=== PATIENT | female | born 2000 | race African-American/Black ===

== ENCOUNTER 2021-12-13 08:06 | Emergency (ER) | payer OTHER, MEDICAID, SELFPAY ==
[2021-12-13 08:38] VITALS: BP 137/86; PULSE 80; RESP 17; TEMP 36.4; O2SAT 97; BMI 24.9
--- NOTE | 2021-12-13 08:43 | DI.RAD.S_ITS ---
PROCEDURE: XR CHEST 2V INDICATIONS: cough TECHNIQUE: 2 views of the chest were acquired. COMPARISON: None. FINDINGS: Surgical changes and devices: None. Lungs and pleura: Lungs are clear. No pleural effusions or pneumothorax. Mediastinum: Mediastinal contours are normal. Heart size is normal. Bones and chest wall: No suspicious bony abnormalities. Soft tissues appear unremarkable. IMPRESSION: Normal two view chest x-ray Approved by: Dev Henderson M.D. on 12/13/2021 at 8:44
[2021-12-13 09:01] LABS: COVID19 -Nasal RAPID Negative (Negative)
--- NOTE | 2021-12-13 09:08 | ED_ITS ---
HPI - URI/Sore Throat General Chief Complaint: Upper Respiratory Symptoms Stated Complaint: Coughing up blood, body aches Time Seen by Provider: 12/13/21 08:39 Source: patient Mode of arrival: Family Vehicle History of Present Illness HPI Narrative: Patient is a 21-year-old female no past medical history presenting today with fever cough for the last 3 days. She says she has been coughing up yellow-green sputum sometimes mixed with blood. She has had body aches fever and chills. She says previously she has gotten inhaler and steroids which she says has helped. She says at night she coughed so hard that she throws up. She says she can not sleep. COVID test is negative. She is taking testosterone but she has not taken it this week. Related Data Home Medications Medication Instructions Recorded Confirmed testosterone cypionate 200 mg/mL mg 12/13/21 intramuscular oil Previous Rx's Medication Instructions Recorded albuterol sulfate 90 mcg/actuation 2 puff INHALATION Q4-6H PRN #8.5 12/13/21 aerosol inhaler gram Allergies Allergy/AdvReac Type Severity Reaction Status Date / Time No Known Drug Allergies Allergy Verified 12/13/21 08:59 Review of Systems Review of Systems Narrative: GENERAL: See HPI HEENT: Denies sinus pain, ear pain, sore throat, difficulty swallowing, neck pain RESPIRATORY: See HPI CARDIOVASCULAR: Denies chest pain, palpitations, orthopnea, edema GASTROINTESTINAL: Denies nausea, vomiting, abdominal pain, diarrhea, constipation, melena. : Denies dysuria, frequency, incontinence, hematuria, urinary retention, flank pain. MUSCULOSKELETAL: Denies weakness, joint pain, or bony pain SKIN: No rash, no erythema, no pruritus NEUROLOGIC: Denies weakness, dizziness, headache, numbness, change in speech, confusion PSYCHIATRIC: No concerning psychosocial issues. 12 point review of systems is negative except for those stated above and HPI Patient History Social History Smoking Status: Unknown if ever smoked Smoking Status: Unknown if ever smoked alcohol intake frequency: 0-2 drinks per day Substance Use Type: does not use Exam Initial Vital Signs Initial Vital Signs: Vital Signs Temperature 97.5 F L 12/13/21 08:38 Pulse Rate 80 12/13/21 08:38 Respiratory Rate 17 12/13/21 08:38 Blood Pressure 137/86 12/13/21 08:38 Pulse Oximetry 97 12/13/21 08:38 GENERAL: Well-appearing, well-nourished and in no acute distress. HEENT: Head atraumatic,EOMI, pupils reactive, face symmetric, moist mucous membranes CARDIOVASCULAR: Regular rate and rhythm without murmurs, rubs or gallops. RESPIRATORY: Breath sounds equal bilaterally, no wheezes rales or rhonchi. EXTREMITIES: Normal range of motion, no clubbing or edema. Neurovascularly intact NEUROLOGICAL: Alert and oriented x4.Normal gait and speech. SKIN: Warm, dry, no laceration, no petechiae, no rashes or lesions. Course Orders Ordered: ED Orders 12/13/21 08:39 COVID19 -Nasal RAPID/Pre-Proc Stat 12/13/21 08:43 XR chest 2V Stat Vital Signs Vital signs: Vital Signs - 8 hr 12/13/21 08:38 Temperature 97.5 F L Pulse Rate 80 Respiratory Rate 17 Blood Pressure 137/86 Pulse Oximetry 97 [facility] - URI/Sore Throat Lab Data Labs: Lab Results 12/13/21 Range/Units 08:39 SARS-CoV-2 (PCR) Negative (Negative) Imaging Data Chest x-ray: Radiologist's Impression: Navya bowman MR#: [id number] : 2000 Acct:[id number] Age/Sex: 21 / F Date of Service: 12/13/21 Loc: ED Accession Number: [id number] ?? Procedure: XR chest 2V Ordering Provider: Eli Cuevas D.O. PROCEDURE:? XR CHEST 2V ? INDICATIONS:? cough ? TECHNIQUE:? 2 views of the chest were acquired.? ? COMPARISON:? None. ? FINDINGS:? ? Surgical changes and devices:? None.? ? Lungs and pleura:? Lungs are clear.? No pleural effusions or pneumothorax.? ? Mediastinum:? Mediastinal contours are normal.? Heart size is normal.? ? Bones and chest wall:? No suspicious bony abnormalities.? Soft tissues appear unremarkable.? ? IMPRESSION:? Normal two view chest x-ray ? ? ? Approved by: Dev Henderson M.D. on 12/13/2021 at 8:44? [facility] Narrative Medical decision making narrative: Patient's COVID test is negative x-rays clear. She has upper respiratory viral- like symptoms. At this time no need for antibiotics. She would like an al buterol inhaler to help with her coughing I think reasonable. She is not hypoxic or in respiratory distress at this time. She is on testosterone with symptoms of body aches fever and productive cough or more and infectious Discharge Plan Departure Patient Disposition: Home Clinical Impression: Upper respiratory infection Instructions: DI for Viral Upper Respiratory Infection -- Adult Activity Restrictions/Additional Instructions: *You have been diagnosed with upper respiratory infection *What to do: At this time no antibiotics. Recommend rest and hydration. *Continue to take medications as directed Albuterol inhaler 1-2 puffs every 4 hours if needed for cough--> SENT TO [facility] Tylenol 1000 mg every 6 hours if needed for fever or [id number] pain Motrin 800 mg every 8 hours if needed for [id number] pain or fever *Follow up with your primary care provider in 2-3 days or call [phone] *Return to ER if you should have increasing shortness of breath, chest pain or any new, worsening or concerning symptoms Prescriptions: New albuterol sulfate 90 mcg/actuation HFA aerosol inhaler 2 puff INHALATION Q4-6H PRN (Reason: shortness of breath or wheezing) Qty: 8.5 0RF No Action testosterone cypionate 200 mg/mL oil 0RF Label Comments: inject 0.25 milliliters intramuscularly every week Stand Alone Forms: Work Release Note
== END 2021-12-13 10:00 | disposition home or self-care (01) ==
PROVIDERS: Emergency Provider Emergency Medicine
DX: J06.9 Acute upper respiratory infection, unspecified (principal); R05.9 Cough, unspecified; Z20.822 Contact with and (suspected) exposure to COVID-19
CPT/HCPCS: 71046; 87635; 99281; 99283; C9803